=== PATIENT | male | born 1990 | race Hispanic/Latino ===

== ENCOUNTER 2024-01-26 08:30 | Emergency (ER) | payer OTHER, SELFPAY ==
[2024-01-26] VITALS (26 sets, daily range): BP systolic 92–134; BP diastolic 47–97; BMI 36.0
--- NOTE | 2024-01-26 08:48 | ED.GENMED ---
History of Present Illness
<Susan St PA-C - Last Filed: 01/28/24 11:26>
General
Chief Complaint: Musculo-Skeletal Complaint
Source: patient
Exam Limitations: none
Time Seen by Provider: 01/26/24 08:31
Nursing documentation reviewed up to this point in time: agreed with
Travel History
Have you had any contact with someone who has COVID-19?: No
Do you have any symptoms of coronavirus? Fever > 100 degrees, chills, cough, shortness of breath, sore throat, loss of taste or smell, muscle aches, or headache?: No
History of Present Illness
History of Present Illness:
33 y/o M with no pmh
here with L ankle defomity
was playing basketball at the gym and jumped and landed and rolled ankle
unabl to weight bear
via 911
normal sensation in the foot
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
pts hr is in th e40s which it was prior to meds
unaware of his chronic resting heart rate
no medical issues
no knee pain
Past History
<Susan St PA-C - Last Filed: 01/28/24 11:26>
Past History
ED Past Medical History: Asthma
ED Past Surgical History: None
Social History
Tobacco: Non-smoker
Alcohol: Occasional
Drug: None
Personal: Single
Living: with family
Review of Systems
<NYASIA Fox Last Filed: 01/28/24 11:26>
Review of Systems
Allergies reviewed?: Yes
All Other Systems: Not applicable
Phy Exam
<NYASIA Fox Last Filed: 01/28/24 11:26>
Physical Exam
Physical Exam:
GENERAL: Alert , patient is diaphoretic
HEAD: NCAT
CV: Bradycardic, no murmur, no edema
NEUROLOGICAL: Alert and oriented, no focal neuro deficits, , 5/5 strength, sensation intact, a
SKIN: Warm and diaphoretic,, no wounds
MUSCULOSKELETAL: Obvious displaced left ankle fracture;, normal pulse, sensation intact
Knee and proximal tib-fib normal
PSYCH: Normal and appropriate interaction.
Course
<Susan St PA-C - Last Filed: 01/28/24 11:26>
Orders/Labs/Results
Orders:
Orders
01/26/24 08:41
Electrocardiogram (*1) Urgent
Reason for Study: Bradycardia / Tachycardia
EKG- Treatment ONCE
0.9% Sodium Chloride 1000 ml [Nss] 1,000 ml IV BOLUS
Ondansetron Injectable [Zofran] 4 mg IV NOW STA
Ankle, left 3 view CR [CR Ankle - Left Min 3 Views ] Urgent
Comment:
Reason For Exam: left ankle deformity
Tib/Fib, Left 2 View [CR Leg Tibia/fibula Left 2 Vw] Urgent
Comment:
Reason For Exam: left ankle deformity
01/26/24 09:01
Ondansetron Injectable [Zofran] 4 mg .ROUTE .STK-MED ONE
01/26/24 09:40
ASA Classification Routine
Propofol [Diprivan] 90 mg IV NOW STA
01/26/24 09:42
Propofol [Diprivan] 20 ml .ROUTE .STK-MED
01/26/24 09:57
Ankle, left 2 view CR [CR Ankle - Left 2 Views] Stat
Comment:
Reason For Exam: post reduction
01/26/24 11:03
Acetaminophen [Tylenol] 650 mg .ROUTE .STK-MED ONE
Acetaminophen [Tylenol] 650 mg PO NOW STA
Ketorolac [Toradol] 30 mg .ROUTE .STK-MED ONE
Ketorolac [Toradol] 30 mg IV NOW STA
Vital Signs
Initial and Last Documented VS:
Initial Vital Signs
Temp Pulse Resp BP Pulse Ox
97.6 F 41 20 101/56 99
01/26/24 08:32 01/26/24 08:32 01/26/24 08:32 01/26/24 08:32 01/26/24 08:32
Last Documented Vital Signs
Temp Pulse Resp BP Pulse Ox
98.1 F 56 16 134/95 99
01/26/24 10:38 01/26/24 11:08 01/26/24 11:08 01/26/24 11:08 01/26/24 11:08
<Sindy Contreras MD - Last Filed: 01/26/24 09:50>
Orders/Labs/Results
Orders:
Orders
01/26/24 08:41
Electrocardiogram (*1) Urgent
Reason for Study: Bradycardia / Tachycardia
EKG- Treatment ONCE
0.9% Sodium Chloride 1000 ml [Nss] 1,000 ml IV BOLUS
Ondansetron Injectable [Zofran] 4 mg IV NOW STA
Ankle, left 3 view CR [CR Ankle - Left Min 3 Views ] Urgent
Comment:
Reason For Exam: left ankle deformity
Tib/Fib, Left 2 View [CR Leg Tibia/fibula Left 2 Vw] Urgent
Comment:
Reason For Exam: left ankle deformity
01/26/24 09:01
Ondansetron Injectable [Zofran] 4 mg .ROUTE .STK-MED ONE
01/26/24 09:40
ASA Classification Routine
Propofol [Diprivan] 90 mg IV NOW STA
01/26/24 09:42
Propofol [Diprivan] 20 ml .ROUTE .STK-MED
01/26/24 09:57
Ankle, left 2 view CR [CR Ankle - Left 2 Views] Stat
Comment:
Reason For Exam: post reduction
01/26/24 11:03
Acetaminophen [Tylenol] 650 mg .ROUTE .STK-MED ONE
Acetaminophen [Tylenol] 650 mg PO NOW STA
Ketorolac [Toradol] 30 mg .ROUTE .STK-MED ONE
Ketorolac [Toradol] 30 mg IV NOW STA
Vital Signs
Initial and Last Documented VS:
Initial Vital Signs
Temp Pulse Resp BP Pulse Ox
97.6 F 41 20 101/56 99
01/26/24 08:32 01/26/24 08:32 01/26/24 08:32 01/26/24 08:32 01/26/24 08:32
Last Documented Vital Signs
Temp Pulse Resp BP Pulse Ox
98.1 F 56 16 134/95 99
01/26/24 10:38 01/26/24 11:08 01/26/24 11:08 01/26/24 11:08 01/26/24 11:08
Procedures
<Susan St PA-C - Last Filed: 01/28/24 11:26>
Moderate Sedation
ASA Risk Score: Class I
Chart and allergies reviewed: Yes
Consent for anesthesia obtained: Yes
Time out completed (validating right patient & procedure): Yes
Moderate Sedation Start Time(when first medication is given): 10:03
History of difficult intubation: No
Airway free of obstruction: Yes
Patient has a gag reflex: Yes
Patient is able to open mouth: Yes
Patient has no dentures: Yes
Patient has no loose teeth: Yes
Medication administered by Provider during Moderate Sedation: IV Propofol (mg)
Total dose administered: 130
Time drug administered: 10:05
Moderate Sedation Procedure End Time: 10:24
<[address] PA-C - Last Filed: 01/28/24 11:26>
MDM/Problems Addressed
Differential Diagnosis Includes:
ankle fracture, deformity, ligamentous injury,
MDM/Problems Addressed:
33-year-old male with a left ankle deformity after jumping and rolling his ankle while playing basketball this morning. Patient was given 100 mics of fentanyl prior to arrival which did affect him quite significantly with some hypotension 90s over
50s and patient was bradycardic in the upper 40s prior to the dose of fentanyl and then went down into the 30s. It is a sinus bradycardia on EKG without ischemic changes and the patient did rebound with IV fluids and some nausea medication. I
believe the pain was causing him to vagal as well.
Patient was seen by ED attending. X-rays did reveal after being independently reviewed by me and also by the physician that he has a distal left fibular fracture and displacement of the medial ankle mortise suggesting ligamentous injury. Patient
was given propofol and tolerated the procedure well, he did require second dose of IV resplinting because he was withdrawing to pain. His heart rate came up into the 50s when he was awake and alert. X-ray shows improvement. The case was discussed
with orthopedic surgeon Dr. Marquez who recommended immobilization and nonweightbearing and follow-up, he will require surgical repair. Return precautions were given. Patient was awake and alert prior to discharge, tolerated p.o. fluids
I did place a splint myself with a posterior and sugar-tong, cap refill intact
<Susan St PA-C - Last Filed: 01/28/24 11:26>
*Critical Care Note
Total Time (30-74mins, 75-104mins- exclusive of procedures): Not Applicable
ED Attending Note
<Susan St PA-C - Last Filed: 01/28/24 11:26>
-
Portions of this chart may have been created with voice recognition software.� Occasional wrong word or��sound alike� substitutions may have occurred due to the inherent limitations of voice recognition software.
<Sindy Contreras MD - Last Filed: 01/26/24 09:50>
ED Attending Note
Patient seen and examined by attending physician: Yes
I performed the substantive portion of visit, reviewed & personally made and approve the management plan that is documented in note by myself or JUSTO.: Yes
ED Attending Note:
Patient appears well and stable. Left foot has strong pulses and good sensation. Orthopedic doctor, Dr. Hsu agreeable to outpatient management after reduction in ED
Discharge Plan
Departure
Patient Disposition: Home (Routine Discharge)
Date of Disposition: 01/26/24
Time of Disposition: 11:15
Patient with high blood pressure during this ER visit?: No
Discharge Problem:
Ankle fracture
Instructions: Ankle Fracture (DC), Moderate Sedation in Adults (DC)
Prescriptions:
New
hydrocodone-acetaminophen 5-325 mg tablet
1 tab PO Q8H PRN (Reason: Pain) Qty: 10 0RF
Referrals:
Avinash Hsu DO [Active] - Follow up in 5-7 days
Cayetano Fleming CRNP [Family Provider] - Follow up in 2-3 days
Activity Restrictions/Additional Instructions:
You had an ankle fracture and ligamentous injury of your ankle. It was reduced and put in a splint. Leave the splint on until you follow up with orthopedics. Elevated is much as you can, ice off-and-on and do not put any weightbearing. Cover it
up to shower. Take Tylenol ibuprofen every 8 hours as needed for pain. If the pain is more severe you can try Vicodin 1 tablet every 6 hours. It does have an narcotic and it, but it is a lower dose and hopefully you do not have much side effects.
If you feel too sick with that you can always cut it in half. Or you can just take regular Tylenol instead.
Call orthopedics and follow-up this week. Tell them that we spoke with the on-call surgeon in the emergency department and that you had to have your ankle fracture reduced. Return for any concerns
Interventions
Interventions:
*Risk Screen - Suicide Last Done: 01/26/24 08:32
*General Assessment Last Done: 01/26/24 08:32
*Neglect/Abuse Screening Last Done: 01/26/24 08:32
ED- Fall Risk Assessment Last Done: 01/26/24 11:25
*ED COVID-19 Vaccine History Last Done: 01/26/24 10:42
*Nursing Disposition Last Done: 01/26/24 11:25
ED-Musculoskeletal Assessment Last Done: 01/26/24 08:47
Discharge Date and Time
Discharge Date/Time: 01/26/24 11:25
Print Language: ALBANIAN
[2024-01-26] MEDS: ZOFRAN 4 MG IV (09:02)
[2024-01-26] MEDS: NSS 1000 IV (09:03)
[2024-01-26] MEDS: TYLENOL 650 MG PO (11:05)
[2024-01-26] MEDS: TORADOL 30 MG IV (11:06)
== END 2024-01-26 11:25 | disposition home or self-care (01) ==
LOC: EMR 08:30
PROVIDERS: EMERGENCY PHYSICIAN Emergency Medicine; FAMILY PHYSICIAN Registered Nurse
DX: S82.892A Other fracture of left lower leg, initial encounter for closed fracture (principal); X50.1XXA Overexertion from prolonged static or awkward postures, initial encounter; Y93.67 Activity, basketball; Y92.39 Other specified sports and athletic area as the place of occurrence of the external cause; J45.909 Unspecified asthma, uncomplicated
CPT/HCPCS: 99285; 27788; 99152; 73590; 73600; 73610; 93005

== ENCOUNTER 2024-07-26 06:20 | Day surgery (SDC) | payer OTHER, SELFPAY ==
[2024-07-26] VITALS (9 sets, daily range): BP systolic 101–136; BP diastolic 63–99; BMI 36.2
[2024-07-26] MEDS: CELEBREX 200 MG PO (08:37)
[2024-07-26] MEDS: TYLENOL 1000 MG PO (08:37)
[2024-07-26] MEDS: DILAUDID 0.5 MG IV (12:17)
[2024-07-26] MEDS: NORMOSOL-R/PLASMALYTE-A 1000 IV (12:32)
[2024-07-26] MEDS: ROXICODONE 5 MG PO (13:23)
[2024-07-26] MEDS: ZOFRAN 4 MG IV (14:01)
== END 2024-07-26 14:49 | disposition home or self-care (01) ==
LOC: SDS 06:20
PROVIDERS: ATTENDING PHYSICIAN Student in an Organized Health Care Education/Training Program
PROC: 0QPK04Z Removal of Internal Fixation Device from Left Fibula, Open Approach (ICD-10-PCS; 2024-07-26)
PROC: 0SBG4ZZ Excision of Left Ankle Joint, Percutaneous Endoscopic Approach (ICD-10-PCS; 2024-07-26)
DX: T84.84XA Pain due to internal orthopedic prosthetic devices, implants and grafts, initial encounter (principal); Y79.8 Miscellaneous orthopedic devices associated with adverse incidents, not elsewhere classified; M65.972 Unspecified synovitis and tenosynovitis, left ankle and foot
CPT/HCPCS: 29898; 20680